=== PATIENT | female | born 1990 | race Two or more races ===

== ENCOUNTER 2018-02-17 13:58 | Emergency (ER) | payer MEDICAID ==
[~2018-02-17] VITALS: Ht 172.7 cm; Wt 109.8 kg
[2018-02-17 17:39] VITALS: BP 110/64
== END 2018-02-17 17:46 | disposition home or self-care (01) ==
LOC: ER 14:07
DX: O20.0 Threatened abortion (principal); O99.281 Endocrine, nutritional and metabolic diseases complicating pregnancy, first trimester; E07.89 Other specified disorders of thyroid; Z3A.01 Less than 8 weeks gestation of pregnancy
CPT/HCPCS: 36415; 76801; 76817; 84702